=== PATIENT | female | born 1975 | race Caucasian/White ===

== ENCOUNTER 2019-09-15 18:46 | Emergency (ER) | payer BC, SELFPAY ==
[2019-09-15 19:09] VITALS: BP 142/90; PULSE 86; RESP 18; TEMP 37; O2SAT 100
--- NOTE | 2019-09-15 19:24 | ED.BURNSMOKE ---
HPI - Burn/Smoke Inhalation General Chief complaint: Burn/Smoke Inhalation Stated complaint: burn left Forearm History of Present Illness HPI Narrative: This is a 44 year old female that two days ago she burn herself on a tv dinner on her left forearm. Patient states that when she went to work she placed a dressing on it and when she came home she took it off and it tore her skin off and she is not for sure on how to take care of it at this time. Related Data Home Medications Medication Instructions Recorded Confirmed losartan 100 mg PO DAILY 09/15/19 09/15/19 methylphenidate HCl 20 mg PO DAILY 09/15/19 09/15/19 sertraline 25 mg PO DAILY 09/15/19 09/15/19 Allergies Allergy/AdvReac Type Severity Reaction Status Date / Time No Known Allergies Allergy Verified 09/15/19 19:23 Review of Systems Review of Systems: Narrative: CONSTITUTIONAL: Denies fever, chills, or sweats. EYES: Denies visual changes, redness, or discharge. ENT: Denies rhinorrhea, congestion, sore throat, or otalgia. CARDIOVASCULAR:Denies chest pain, palpitations, or edema. RESPIRATORY: Denies cough or dyspnea. GASTROINTESTINAL: Denies abdominal pain, nausea, vomiting, or diarrhea. GENITOURINARY: Denies dysuria or hematuria. SKIN:[Denies rash or itching. positive for burn MUSCULOSKELETAL:Denies back pain, joint pain, or myalgia. NEUROLOGIC: Denies headache, numbness, or weakness. PSYCHIATRIC:Denies anxiety or depression PMFSH Comments At time as signature, I have reviewed and agree with nursing past medical, social, surgical and family history. Please see nursing chart for further information. There is no relevant family history pertinent to the presenting complaint. Exam Narrative: Exam Narrative: GENERAL:Well-appearing, well-nourished, and in no acute distress. HEAD:Normocephalic, atraumatic. EYES: PERRLA and EOMI. ENT: Nares clear, no rhinorrhea or epistaxis. Mucous membranes moist. NECK: Supple. CHEST: Clear to auscultation. No respiratory distress. HEART: Regular rate and rhythm. No murmur heard. Normal peripheral pulses. ABDOMEN: Soft, nontender, nondistended, normal active bowel sounds. EXTREMITIES: Normal range of motion. No edema. SKIN: Warm, dry, no rash. 2nd and 1st degree burn on the left forearm. Patient forearm is open where the skin was torn off due to a dressing with blistering noted around the area. NEURO: No focal deficits. Alert and oriented x3. Course Vital Signs Vital signs: Vital Signs Temperature 98.6 F 09/15/19 19:09 Pulse Rate 86 09/15/19 19:09 Respiratory Rate 18 09/15/19 19:09 Blood Pressure 142/90 H 09/15/19 19:09 Pulse Oximetry 100 09/15/19 19:09 Temperature 98.6 F 09/15/19 19:09 Pulse Rate 86 09/15/19 19:09 Respiratory Rate 18 09/15/19 19:09 Blood Pressure 142/90 H 09/15/19 19:09 Pulse Oximetry 100 09/15/19 19:09 Discharge Plan Discharge Clinical Impression: 2nd deg burn arm Qualifiers: Encounter type: initial encounter Upper extremity location: forearm Laterality: left Qualified Code(s): T22.212A - Burn of second degree of left forearm, initial encounter Patient Disposition: Home, Self-Care Condition: Stable Instructions: Antibiotic Form, Second Degree Burn (ED) Additional Instructions: Wash your hands with soap and water and remove old bandages. You may need to soak the bandage in water before you remove it so it will not stick to your wound. Gently clean the burned area daily with mild soap and water, and pat dry. Look for any swelling or redness around the burn. Do not break closed blisters, because this increases the risk for infection. Apply cream or ointment to the burn with a cotton swab. Place a nonstick bandage over your burn. Wrap a layer of gauze around the bandage to hold it in place. The wrap should be snug but not tight. It is too tight if you feel tingling or lose feeling in that area. Apply gentle pressure for a few minutes if bleeding occurs. Lynne
[2019-09-15] MEDS: TETANUS,DIPHTHERIA,AC PERTUSSIS ADULT 0.5 ML (ADACEL) IM (19:42)
[2019-09-15] MEDS: SILVER SULFADIAZINE 1% CR 50 GM JAR (*BKC) 1 APPLIC TOPICAL (19:44)
== END 2019-09-15 20:04 | disposition home or self-care (01) ==
PROVIDERS: Emergency Provider Nurse Practitioner Family
DX: T22.212A Burn of second degree of left forearm, initial encounter (principal); X10.1XXA Contact with hot food, initial encounter; Z23 Encounter for immunization; F41.9 Anxiety disorder, unspecified; F32.9 Major depressive disorder, single episode, unspecified
CPT/HCPCS: 16020; 90471; 90715; 99203; A9270; G0463

== ENCOUNTER 2020-05-16 16:00 | Outpatient (NON) | payer BC, SELFPAY ==
[2020-05-17 12:19] LABS: Influenza Control Positive
== END 2020-05-16 16:01 ==
PROVIDERS: PCP Family Medicine; Visit Provider Family Medicine
DX: R50.9 Fever, unspecified (principal)
CPT/HCPCS: 87804

== ENCOUNTER 2020-06-28 11:56 | Emergency (ER) | payer BC, SELFPAY ==
--- NOTE | ~2020-06-28 | XR_ITS ---
EXAMINATION: XR chest 2V EXAM DATE: 06/28/2020 13:08 INDICATION: Mid chest pain. Heaviness. TECHNIQUE: Frontal and lateral projections of the chest obtained and reviewed. Comparison is made to prior examination from 01/03/2019. FINDINGS: The lungs are clear. There are no pleural effusions. The cardiomediastinal silhouette is within normal limits. There is no pneumothorax suspected. The bones and soft tissues are unremarkab le. There are cholecystectomy clips. IMPRESSION: Normal chest x-ray exam. Reviewed, dictated and finalized at location B. [employer] IMPRESSION: Normal chest x-ray exam.
--- NOTE | 2020-06-28 12:13 | ECG_ITS ---
Measurements Intervals [place] Rate: 92 P: 59 AR: 129 QRS: 31 QRSD: 89 T: 46 QT: 338 QTc: 420 Interpretive Statements SINUS RHYTHM INCOMPLETE RIGHT BUNDLE BRANCH BLOCK BORDERLINE ECG Electronically Signed On 06-28-2020 15:15:40 [employer] by Noe Emanuel D.O.
[2020-06-28 12:14] VITALS: BP 173/109; PULSE 93; RESP 18; TEMP 36.7; O2SAT 100
[2020-06-28 12:28] LABS: Basophils Percent Auto 0.8 % (0.2-1.2); Eosinophils Absolute Auto 0.4 K/mm3 (0-0.3); Eosinophils Percent Auto 8.2 % (0-4.4); Hematocrit 41.4 % (37.0-47.0); Hemoglobin 14.5 g/dL (12.0-15.0); Immature Granulocyte Absolute 0.02 K/mm3 (0.00-0.031); Immature Granulocyte Percent A 0.4 % (0-0.5); Lymphocytes Absolute Auto 1.22 K/mm3 (0.9-3.2); Lymphocytes Percent Auto 23.2 % (18.3-44.2); Mean Corpuscular Hemoglobin 33.7 pg (26-34); Mean Corpuscular Volume 96.3 fl (80-100); Mean Platelet Volume 10.1 fl (7.4-10.4); Monocytes Absolute Auto 0.6 K/mm3 (0.1-0.6); Monocytes Percent Auto 11.8 % (2.6-8.5); Neutrophils Absolute Auto 2.9 K/mm3 (1.3-6.7); Neutrophils Percent Auto 55.6 % (45.5-73.1); Platelet Count Result 262 k/mm3 (150-375); Red Cell Distribution Width 12.4 % (11.5-14.5); White Blood Count 5.3 K/mm3 (4.5-10.0)
[2020-06-28 12:37] LABS: INR 0.9; Prothrombin Time 12.5 Seconds (11.1-14.7)
[2020-06-28 12:38] LABS: Partial Thromboplastin Time 24.1 SECONDS (22.3-36.8)
[2020-06-28 12:40] LABS: Anion Gap 8 mmol/L (8-16); Blood Urea Nitrogen 17 mg/dL (7-17); Calcium 9.3 mg/dL (8.4-10.2); Carbon Dioxide 24 mmol/L (22-30); Chloride 105 mmol/L (98-107); Estimated CRCL calculation 63 ml/min; Estimated Glomerular Filt Rate > 60; Glucose 101 mg/dL (65-105); Potassium 4.2 mmol/L (3.4-5.0); Sodium 137 mmol/L (137-145)
[2020-06-28 12:51] LABS: Troponin I < 0.012 ng/mL (0.000-0.034)
[2020-06-28] MEDS: ASPIRIN 81 MG CHEWABLE TABLET 324 MG PO (14:30)
[2020-06-28 14:32] VITALS: PULSE 78
--- NOTE | 2020-06-28 15:36 | ED.CHESTPAIN ---
HPI - Chest Pain General Chief Complaint: Chest Pain Stated Complaint: ELEVATED BP Time Seen by Provider: 06/28/20 14:25 Source: patient Mode of arrival: ambulatory Limitations: no limitations History of Present Illness HPI narrative: This is a 45 year old female that presents to the ER for chest tightness since yesterday. Reports she feels like she cant get a deep breath. Reports she took her blood pressure at work today and it was elevated which prompted her to be seen. Denies fever, cough, or lower extremity edema. Related Data Home Medications Medication Instructions Recorded Confirmed armodafinil 250 mg tablet 250 mg PO ONCE 05/22/19 05/14/20 methylphenidate HCl 20 mg tablet 20 mg PO BID tablet 05/14/20 05/14/20 oseltamivir mg 06/28/20 pitolisant [Wakix] mg 06/28/20 Allergies Allergy/AdvReac Type Severity Reaction Status Date / Time erythromycin base Allergy Unknown Headache Verified 06/28/20 15:10 Review of Systems Review of Systems: Narrative: CONSTITUTIONAL: Denies fever ENT: Denies rhinorrhea, congestion CARDIOVASCULAR: Reports chest pain. Denies edema. RESPIRATORY: Reports dyspnea. Denies cough All systems reviewed & are unremarkable except as noted in HPI and below PMFSH Past Medical History Medical History (Updated 06/28/20 @ 16:09 by Jo Ann Madera PA-C) Allergies Clavicle fracture Left Hypertension Narcolepsy Surgical History Surgical History History of cholecystectomy Family History Family History Father Hypertension Family history of arthritis Family history of heart disease in male family member before age 55 Cerebrovascular accident Mother Hypertension Cerebrovascular accident Family history of arthritis Lupus Brain bleed Spinal stenosis Hypothyroidism Sibling Asthma Hypothyroidism Fibromyalgia Grandparent Hypertension Hyperlipemia Arthritis Hypothyroidism Glaucoma Grandparent Parkinson disease Grandparent Primary biliary cirrhosis Grandparent Lung cancer Social History Social History Smoking status: Never smoker Alcohol intake: current Substance use: never Substance use type: does not use Additional occupation/education comments: [employer] Gender identity (if verbalized by the patient): Female Spiritual care concerns: No Agree to blood products: Yes Exam Narrative: Exam Narrative: GENERAL: Well-appearing, well-nourished, and in no acute distress. HEAD: Normocephalic, atraumatic. EYES: EOMI. ENT: Nares clear, no rhinorrhea or epistaxis. Mucous membranes moist. Oropharynx without tonsillar hypertrophy exudate or other lesions. NECK: Supple. No adenopathy or masses. CHEST: Clear to auscultation. No respiratory distress. No wheezes rales or rhonchi HEART: Regular rate and rhythm. No murmur heard. Normal peripheral pulses. EXTREMITIES: Normal range of motion. No edema. SKIN: Warm, dry, no rash. NEURO: No focal deficits. Alert and oriented x3. PSYCH: Normal mood and affect Course Vital Signs Vital signs: Vital Signs Temperature 98.1 F 06/28/20 12:14 Pulse Rate 93 06/28/20 12:14 Respiratory Rate 18 06/28/20 12:14 Blood Pressure 173/109 H 06/28/20 12:14 Pulse Oximetry 100 06/28/20 12:14 Temperature 98.1 F 06/28/20 12:14 Pulse Rate 78 06/28/20 14:32 Respiratory Rate 18 06/28/20 12:14 Blood Pressure 173/109 H 06/28/20 12:14 Pulse Oximetry 100 06/28/20 12:14 MDM - Chest Pain MDM Narrative Medical decision making narrative: Patient presents to the ER for chest pain present since yesterday. Non-exertional in nature. Does report history of anxiety and thought was possibly due to this. Blood pressure elevated on arrival to 173/109. This improved without intervention. Most recent blood pressure 132/85. Oxygen sa
[2020-06-28 15:37] LABS: Troponin I < 0.012 ng/mL (0.000-0.034)
[2020-06-28 15:53] LABS: D Dimer 0.27 ug/mL (<0.48)
[2020-06-28] MEDS: KETOROLAC 15 MG/ML VIAL (*BKC) IV PUSH (16:11)
== END 2020-06-28 16:39 | disposition home or self-care (01) ==
PROVIDERS: Physician Assistant; Emergency Provider Emergency Medicine; PCP Family Medicine
DX: R07.89 Other chest pain (principal); I10 Essential (primary) hypertension; I45.10 Unspecified right bundle-branch block
CPT/HCPCS: 36415; 71046; 80048; 84484; 85025; 85380; 85610; 85730; 93005; 96374; 99284; A9270; J1885

== ENCOUNTER 2021-07-08 17:28 | Emergency (ER) | payer OTHER, SELFPAY ==
--- NOTE | 2021-07-08 17:32 | ED.URI ---
HPI - URI/Sore Throat General Chief Complaint: Headache Stated Complaint: Cough Time Seen by Provider: 07/08/21 17:55 Source: patient and RN notes reviewed Mode of arrival: ambulatory Limitations: no limitations History of Present Illness HPI Narrative: 46-year-old female presents with concern for returning to work. Reports she had a headache on and off that started on July 02. Reports she currently is having no symptoms. Reports she is unable to return to work without a note. She reports she took a negative Covid test on Sunday 2 days after her symptoms started, reports her boyfriend had a positive Covid test on the same day, they do not live together and she has not been like staying with him this week. MD elicited complaint: cough and sore throat Related Data Home Medications Medication Instructions Recorded Confirmed armodafinil 250 mg tablet 250 mg PO ONCE 05/22/19 05/14/20 pitolisant [Wakix] mg 06/28/20 Allergies Allergy/AdvReac Type Severity Reaction Status Date / Time erythromycin base Allergy Unknown Headache Verified 07/26/20 14:45 Review of Systems Review of Systems: CONSTITUTIONAL: Denies malaise, chills, sweats, or fever. EYES: Denies visual changes, redness, or discharge. ENT: Denies rhinorrhea, congestion, sinus pain, otalgia and sore throat. CARDIOVASCULAR: Denies chest pain, palpitations, or edema. RESPIRATORY: Denies cough. Denies dyspnea. GASTROINTESTINAL: Denies abdominal pain, nausea, vomiting, diarrhea SKIN: Denies rash or itching. MUSCULOSKELETAL: Denies myalgia. NEUROLOGIC: Denies headache. All systems reviewed & are unremarkable except as noted in HPI and below PMFSH Past Medical History Medical History Allergies Back fracture at age 9 Clavicle fracture Left Heart murmur pt outgrew Hypertension Narcolepsy Palpitations with regular cardiac rhythm Spina bifida occulta born with no issuses Surgical History Surgical History H/O wisdom tooth extraction H/O: hysterectomy 05/2019 History of cholecystectomy Family History Family History Father Hypertension Family history of arthritis Family history of heart disease in male family member before age 55 Cerebrovascular accident Melanoma Mother Hypertension Cerebrovascular accident Family history of arthritis Lupus Brain bleed Spinal stenosis Hypothyroidism Fibromyalgia A-fib Ulcerative colitis Sibling Asthma Hypothyroidism Fibromyalgia Grandparent Hypertension Hyperlipemia Arthritis Hypothyroidism Glaucoma Grandparent Parkinson disease Grandparent Primary biliary cirrhosis Grandparent Lung cancer Other Bundle branch block Pacemaker Pernicious anemia Social History Social History Smoking status: Never smoker Second hand tobacco smoke exposure: No Alcohol intake: current Drinks per week: 5 Alcohol use details: vodka/wine Substance use: former Substance use type: does not use and marijuana Additional occupation/education comments: [employer] Gender identity (if verbalized by the patient): Female Spiritual care concerns: No Agree to blood products: Yes Comments At time of signature, agree with nursing past medical, surgical, social and family history. There is no relevant family history pertinent to the presenting complaint Exam Narrative: GENERAL: Well-appearing, well-nourished, and in no acute distress. HEAD: Normocephalic EYES: PERRLA, conjunctivae clear ENT: Nares clear, clear discharge. Mucous membranes moist. TM pearly fernandez with dull light reflex bilaterally; no tragal tenderness. Oropharynx not erythematous without lesions. Tonsils not enlarged and without exudate, no drooling, no hoarseness, no trismus, uvula midline.
[2021-07-08 17:55] VITALS: BP 155/106; PULSE 100; RESP 20; TEMP 37.1; O2SAT 100
== END 2021-07-08 18:34 | disposition home or self-care (01) ==
PROVIDERS: Emergency Provider Nurse Practitioner
DX: U07.1 COVID-19 (principal); I10 Essential (primary) hypertension
CPT/HCPCS: 87426; 99213; C9803; G0463